=== PATIENT | male | born 1955 ===

== ENCOUNTER 2017-01-21 00:18 | Emergency (ER) | payer BC ==
[2017-01-21 00:27] VITALS: RESP 18
--- NOTE | 2017-01-21 01:35 | C.PDOC ---
History Of Present Illness <MarianoNiahadley - Last Filed: 01/21/17 01:54> <Johanne Álvarez - Last Filed: 01/21/17 06:01> Patient presents to the ER with constipation for the past 3-4 days. Patient stated he had small bowel movements at home but notes having a large bowel movement in ER with relief. Patient feels better but is requesting an enema to remove the rest of the stool. Denies any nausea or vomiting. (Johanne Álvarez) <Nia Quintanahadley - Last Filed: 01/21/17 01:54> History Per: Patient History/Exam Limitations: no limitations Onset/Duration Of Symptoms: Days (3-4) Current Symptoms Are (Timing): Better Quality Of Discomfort: Unable To Describe Associated Symptoms: denies: Fever, Nausea, Vomiting Exacerbating Factors: None Alleviating Factors: None Last Bowel Movement: Today Recent travel outside of the [place]: No <Johanne Álvarez - Last Filed: 01/21/17 06:01> Time Seen by Provider: 01/21/17 01:19 Chief Complaint (Nursing): Abdominal Pain Past Medical History Reviewed: Historical Data, Nursing Documentation, Vital Signs - Medical History PMH: No Chronic Diseases Other Surgeries: Recent spinal fusion Family History: States: No Known Family Hx - Social History Hx Alcohol Use: No Hx Substance Use: No - Immunization History Hx Tetanus Toxoid Vaccination: No Hx Influenza Vaccination: No Hx Pneumococcal Vaccination: No <Johanne Álvarez - Last Filed: 01/21/17 06:01> Vital Signs: Last Vital Signs Temp 98.6 F 01/21/17 02:50 Pulse 86 01/21/17 02:50 Resp 18 01/21/17 02:50 BP 164/94 H 01/21/17 02:50 Pulse Ox 99 01/21/17 05:59 Review Of Systems Except As Marked, All Systems Reviewed And Found Negative. Constitutional: Negative for: Fever, Chills Gastrointestinal: Positive for: Abdominal Pain, Constipation. Negative for: Nausea, Vomiting <Johanne Álvarez - Last Filed: 01/21/17 06:01> Physical Exam - Physical Exam Gastrointestinal/Abdominal: Bowel Sounds, Distention (mild), Other (fluid retention) Extremity: Other (3+ pitting edema in legs up to scrotum) <MarianoNiahadley - Last Filed: 01/21/17 01:54> - Physical Exam Appears: Non-toxic Skin: Normal Color, Warm, Dry Head: Atraumatic, Normacephalic Eye(s): bilateral: Normal Inspection, PERRL, EOMI Oral Mucosa: Moist Neck: Normal ROM, Supple Chest: Symmetrical Cardiovascular: Rhythm Regular Respiratory: Normal Breath Sounds, No Rales, No Rhonchi, No Wheezing Gastrointestinal/Abdominal: Soft, No Tenderness, Distention Extremity: Other Neurological/Psych: Oriented x3, Normal Speech, Normal Cognition, Normal Motor, Normal Sensation Gait: Steady <Johanne Álvarez - Last Filed: 01/21/17 06:01> ED Course And Treatment O2 Sat by Pulse Oximetry: 99 (room air) Pulse Ox Interpretation: Normal <Johanne Álvarez - Last Filed: 01/21/17 06:01> Medical Decision Making <MarianoNiahadley Last Filed: 01/21/17 01:54> <Johanne Álvarez - Last Filed: 01/21/17 06:01> Medical Decision Making: Meds- Fleet Enema. On re-exam, the patient reports improvement of symptoms. Abdomen is soft, non-tender and patient is tolerating PO well. (Johanne Álvarez) Disposition <Bety Quintana - Last Filed: 01/21/17 01:54> - Disposition Disposition Time: 02:35 <Johanne Álvarez - Last Filed: 01/21/17 06:01> - Disposition Referrals: [facility] [Outside] Disposition: HOME/ ROUTINE Condition: GOOD Additional Instructions: Follow up with the medical doctor within 1-2days. Return if worsened Prescriptions: Docusate Sodium [Colace] 100 mg PO DAILY #30 capsule Instructions: Constipation (GEN), High Fiber Diet (ED) Forms: School Excuse, Work Excuse - Clinical Impression Clinical Impression: Constipation <Bety Quintana - Last Filed: 01/21/17 01:54> - Scribe Statement The provider has reviewed the documentation as recorded by the Scribe <Johanne Álvarez - Last Filed: 01/21/17 06:01> - Scribe Statement Kimmy Farias All medical record entries made by the Scribe were at my direction and personally dictated by me. I have reviewed the chart and agree that the record accurately reflects my personal performance of the history, physical exam, medical decision making, and the department course for this patient. I have also personally directed, reviewed, and agree with the discharge instructions and disposition. (Johanne Álvarez)
[2017-01-21 02:51] VITALS: BP 164/94; PULSE 86; TEMP 98.6
[2017-01-21 06:00] VITALS: O2SAT 99
== END 2017-01-21 03:05 | disposition home or self-care (01) ==
LOC: SUPCPDRO 00:18 → C.ER 00:18
DX: K59.00 Constipation, unspecified (principal)